=== PATIENT | female | born 1950 | race Caucasian/White ===

== ENCOUNTER → 2017-07-22 | Outpatient (CLI) | payer MEDICARE | END | disposition home or self-care (01) | LOC: GMAB 12:09 | PROVIDERS: ATTEND Family Medicine | DX: Z79.899 Other long term (current) drug therapy (principal) ==

== ENCOUNTER 2020-03-17 12:50 | Emergency (ER) | payer MEDICARE ==
[2020-03-17] MEDS ORDERED: SODIUM CHLORIDE 0.9% (FLUSH) 10 ML SYG IV PRN (16:36)
[2020-03-17] MEDS ORDERED: ONDANSETRON INJ 4 MG/2 ML VIAL IV ONE (16:37)
[2020-03-17] MEDS ORDERED: SODIUM CHLORIDE 0.9% 1000ML 1,000 ML IVS ONE (16:37)
--- NOTE | 2020-03-17 16:40 | ED.PDOC ---
History of Present Illness - General Time Seen by Provider: 03/17/20 16:36 Source: patient - History of Present Illness Initial Comments: 70-year-old female who presents with sore throat. Onset of illness 5 days ago with gradual worsening. Is reporting primary symptoms of malaise, body aches, intermittent dry cough, and sore throat. Sore throat is been worsening in the past couple of days, currently reports 10/10 sore pain to back of throat w/o rad iation, worse with swallowing, not relieved by meds at home. Denies fevers, chills, chest pain, dyspnea, abdominal pain, vomiting/diarrhea, urinary symptoms. She does report nausea. She took a Covid swab earlier at the clinic but is unsure of the results. The clinic did call and states she is positive for COVID-19 and rhinovirus. Allergies/Adverse Reactions: Allergies NO KNOWN ALLERGY Allergy (Verified 03/17/20 16:56) Home Medications: Ambulatory Orders Arava DAILY 02/17/16 Celecoxib [CeleBREX] 200 mg PO DAILY 02/17/16 Meloxicam DAILY 02/17/16 Relpax PRN 02/17/16 Review of Systems - Review of Systems Review of Systems: 03/17/20 16:40 as per HPI All other Systems: Reviewed and Negative Past Medical History (General) - Patient Medical History Hx Seizures: No Hx Stroke: No Hx Dementia: No Hx Asthma: No Hx of COPD: No Hx Cardiac Disorders: No Hx Congestive Heart Failure: No Hx Pacemaker: No Hx Hypertension: No Hx Thyroid Disease: No Hx Diabetes: No Hx Gastroesophageal Reflux: No Hx Renal Disease: No Hx Cancer: No Hx of HIV: No Hx Hepatitis C: No Hx MRSA: No - Vaccination History Hx Tetanus, Diphtheria Vaccination: No Hx Influenza Vaccination: Yes Hx Pneumococcal Vaccination: No - Social History Hx Tobacco Use: No Hx Alcohol Use: No Hx Substance Use: No Hx Substance Use Treatment: No Hx Depression: No Hx Physical Abuse: No Hx Emotional Abuse: No Hx Suspected Abuse: No Family Medical History - Family History Mother Family History: No Known Physical Exam - Physical Exam General Appearance: Alert, Comfortable, No apparent distress Eye Exam: bilateral normal Ears, Nose, Throat: hearing grossly normal, pharyngeal erythema, other - no tonsillar exudate or swelling Neck: full range of motion, supple, normal inspection Respiratory: lungs clear, normal breath sounds, no respiratory distress, no accessory muscle use Cardiovascular/Chest: normal peripheral pulses, regular rate, rhythm, no edema, no gallop, no JVD, no murmur Peripheral Pulses: radial,right: 2+, radial,left: 2+ Gastrointestinal/Abdominal: non tender, soft, no organomegaly Back Exam: normal inspection Extremity: normal range of motion, non-tender, normal inspection, no pedal edema, no calf tenderness, normal capillary refill 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 Patient is positive for COVID-19 and rhinovirus. Consider also strep, flu, other. Does not appear to be severe in nature. Patient is stable, no acute distress, vitals normal. -Obtain basic labs, chest x-ray, rapid flu and strep, UA. We will give 1 L normal saline bolus, Toradol, and Zofran in the ED. 03/17/20 17:31 -Labs pertinent for mildly elevated D-dimer level, which I suspect is from her COVID-19 infection. She is without dyspnea or hypoxia or chest pain, pulmonary embolism considered highly unlikely. We will defer CTA imaging at this time. Otherwise labs pretty unremarkable. CRP and WBC within normal limits. Rapid strep testing is negative. -Discussed diagnoses of COVID-19 and rhinovirus as well as expected clinical course and continued supportive care/home management. Discussed quarantine measures and PCP follow-up. -Discharge home in good condition, return warnings discussed Walt Ford MD Billing #[id number] 03/17/20 16:30 STREP A SCREEN CULTURE Stat 03/17/20 16:36 IV Care:Saline Lock per Protoc QSHIFT Telemetry .ONCE Sodium Chloride 0.9% (Flush) [Saline Flush Syringe] 10 ml IV PRN PRN Chest,1 View [RAD] Stat 03/17/20 16:37 Sodium Chloride 0.9% 1000ML [Ns 1000 ml] 1,000 ml IVS ONCE URINALYSIS Stat 03/18/20 09:00 Pulse Ox Daily Laboratory Results - last 24 hr 03/17/20 03/17/20 03/17/20 16:30 16:40 16:40 WBC 4.8 RBC 4.52 Hgb 14.7 Hct 41.6 MCV 92.0 MCH 32.4 H MCHC 35.2 RDW 13.3 Plt Count 226 MPV 8.0 Absolute Neuts (auto) 3.40 Absolute Lymphs (auto) 0.80 L Absolute Monos (auto) 0.40 Absolute Eos (auto) 0.00 Absolute Basos (auto) 0.00 Neutrophils % 72.0 Lymphocytes % 17.2 L Monocytes % 9.5 H Eosinophils % 0.9 L Basophils % 0.4 D-Dimer, Quantitative Sodium 139 Potassium 4.1 Chloride 106 Carbon Dioxide 24 Anion Gap 13.1 BUN 22 H Creatinine 0.89 BUN/Creatinine Ratio 24.7 H Random Glucose 112 H Serum Osmolality 281.6 Calcium 9.0 Total Bilirubin 0.6 AST 17 ALT 14 Alkaline Phosphatase 85 C-Reactive Protein Serum Total Protein 8.0 Albumin 4.1 Globulin 3.9 H Albumin/Globulin Ratio 1.1 Group A Strep Rapid Negative 03/17/20 03/17/20 16:40 16:40 WBC RBC Hgb Hct MCV MCH MCHC RDW Plt Count MPV Absolute Neuts (auto) Absolute Lymphs (auto) Absolute Monos (auto) Absolute Eos (auto) Absolute Basos (auto) Neutrophils % Lymphocytes % Monocytes % Eosinophils % Basophils % D-Dimer, Quantitative 849.0 H* Sodium Potassium Chloride Carbon Dioxide Anion Gap BUN Creatinine BUN/Creatinine Ratio Random Glucose Serum Osmolality Calcium Total Bilirubin AST ALT Alkaline Phosphatase C-Reactive Protein 1.0 Serum Total Protein Albumin Globulin Albumin/Globulin Ratio Group A Strep Rapid - EKG/XRAY/CT XRAY: chest - Faint bilateral lower lobe hazy opacities consistent with COVID-19 infection per my read Departure - Departure Clinical Impression: COVID-19, Rhinovirus Time of Disposition: 17:30 Disposition: Discharge to Home or Self Care Condition: Good Departure Forms: ED Discharge - Pt. Copy, Patient Portal Self Enrollment Instructions: Coronavirus Disease 2019 (COVID-19) Diet: resume usual diet Activity: increase activity as tolerated Referrals: Marcus Talbert MD [Primary Care Provider] - 1-2 Weeks Home Medications: Ambulatory Orders Arava DAILY 02/17/16 Celecoxib [CeleBREX] 200 mg PO DAILY 02/17/16 Meloxicam DAILY 02/17/16 Relpax PRN 02/17/16 Additional Instructions: Remain well-hydrated and gradually advance your diet and activity level as tolerated. You may continue take [id number] cough and cold medications as needed for viral infections of COVID-19 and rhinovirus. You may also take [id number] sore throat medications for the throat discomfort. Return to the ED if you develop concerning symptoms such as shortness of breath, chest p ain, trouble managing saliva/secretions, etc. Otherwise follow-up with your primary care doctor in the next 5 to 7 days over the telephone for repeat evaluation or sooner as needed. You will need to self quarantine for 14 days since the initial onset of your symptoms.
[2020-03-17] MEDS ORDERED: KETOROLAC TROMETHAMINE INJ 30 MG/ML VIAL IV ONE (16:42)
[2020-03-17 18:14] VITALS: BP 136/74; TEMP 97; O2SAT 97
--- NOTE | 2020-03-17 18:56 | RAD ---
EXAM DESCRIPTION: Chest,1 View 03/17/2020 6:54 PM [employer] CLINICAL HISTORY: 70 years, Female, cough, malaise COMPARISON: None FINDINGS: Single view of the chest was obtained portable. No prior films are available for comparison. The cardiomediastinal silhouette demonstrate to be unremarkable. The heart is not enlarged. The thoracic aorta is unremarkable. There is elevation of the right hemidiaphragm with minimal compressive atelectatic changes. Costophrenic angles are sharp. No areas of consolidation or masses are seen. The rest of the soft tissue and bony structures demonstrate to be unremarkable. IMPRESSION: ELEVATION RIGHT HEMIDIAPHRAGM WITH INTIMAL COMPRESSIVE ATELECTATIC CHANGES. NO ACUTE CARDIOPULMONARY DISEASE SEEN. Electronically signed by: Ignacio Garay MD 03/17/2020 6:55 PM [employer]
== END 2020-03-17 18:13 | disposition home or self-care (01) ==
LOC: ER 12:50
DX: U07.1 COVID-19 (principal)
CPT/HCPCS: 36415; 71045; 80053; 85025; 85379; 86140; 87070; 87880; 94760; A4216; J1885; J2405; J7030